=== PATIENT | female | born 1950 | race Caucasian/White ===

== ENCOUNTER 2019-11-14 18:50 | Inpatient (IN) | payer MEDICARE, OTHER ==
[~2019-11-14] VITALS: Ht 162.6 cm; Wt 48.2 kg
--- NOTE | 2019-11-14 19:06 | NUR ---
just vomited 300 mls of brown tinged liquid with food particles.
[2019-11-14 19:38] LABS: BASOPHILS # (AUTO) 0.1 X10'3 (0-0.2); BASOPHILS % (AUTO) 0.5 % (0-1); EOSINOPHILS # (AUTO) 0.3 X10'3 (0-0.9); EOSINOPHILS % (AUTO) 2.1 % (0-6); HEMATOCRIT 41.7 % (35.0-45.0); HEMOGLOBIN 13.7 g/dl (12.0-16.0); LYMPHOCYTES # (AUTO) 1.7 X10'3 (1.1-4.8); LYMPHOCYTES % (AUTO) 10.7 % (21-51); MEAN CORPUSCULAR HEMOGLOBIN 26.9 PG (27.0-31.0); MEAN CORPUSCULAR HGB CONC 32.9 g/dL (33.0-36.5); MEAN CORPUSCULAR VOLUME 81.8 FL (78-98); MONOCYTES # (AUTO) 1.1 X10'3 (0-0.9); MONOCYTES % (AUTO) 7.1 % (2-12); NEUTROPHILS # (AUTO) 12.3 X10'3 (1.8-7.7); NEUTROPHILS % (AUTO) 79.6 % (42-75); PLATELET COUNT 454 X10'3 (140-440); RED CELL DISTRIBUTION WIDTH 16.4 % (11.5-14.5); WHITE BLOOD COUNT 15.4 X10'3 (4.5-11.0)
[2019-11-14] MEDS ORDERED: normal saline 1000ml 1,000 ML IV ONE ×2 (19:40→20:00)
[2019-11-14] MEDS ORDERED: ondansetron/PF 4mg/2ml inj IV ONE ×2 (19:40→21:25)
[2019-11-14 19:46] LABS: ALANINE AMINOTRANSFERASE 25 U/L (12-78); ALBUMIN 3.1 G/DL (3.4-5.0); ALBUMIN/GLOBULIN RATIO 0.4 (1.1-1.5); ALKALINE PHOSPHATASE 166 IU/L (46-116); ANION GAP 12 (8-16); BILIRUBIN,TOTAL 0.6 MG/DL (0.1-1.0); BLOOD UREA NITROGEN 23 MG/DL (7-18); BUN/CREATININE RATIO 25.8 (6.6-38.0); CALCIUM 9.8 MG/DL (8.5-10.1); CHLORIDE 96 MMOL/L (99-107); CREATININE 0.89 MG/DL (0.40-0.90); LIPASE 237 U/L (73-393); SODIUM 132 MMOL/L (135-145); TOTAL CARBON DIOXIDE 23.7 MMOL/L (24-32); TOTAL PROTEIN 10.5 G/DL (6.4-8.2); eGFR 63 ML/MIN
--- NOTE | 2019-11-14 19:57 | NUR ---
pt stated she felt like she was going to pass out. Side rails elevated, head of bed flat. VSS. PT unresponsive for approx 5-10 seconds, then became more alert. After event, pt A/0 X 4. notified of sycopal event. No new orders.
[2019-11-14 20:02] LABS: GLUCOSE 156 MG/DL (70-104); POTASSIUM 4.6 MMOL/L (3.5-5.1)
[2019-11-14 20:08] LABS: ASPARTATE AMINO TRANSFERASE 49 U/L (10-37)
[2019-11-14] MEDS ORDERED: proCHLORperazine 10 MG/2 ml inj IV ONE (21:00)
[2019-11-14] MEDS ORDERED: diphenhydrAMINE 50 mg/ml inj IV ONE (21:00)
[2019-11-14] MEDS ORDERED: MORP-92 PO (21:20)
[2019-11-14] MEDS ORDERED: GLIP10TA11 PO (21:21)
[2019-11-14] MEDS ORDERED: HYDR-3972 PO (21:22)
[2019-11-14] MEDS ORDERED: LORA-269 PO (21:24)
[2019-11-14] MEDS ORDERED: morphine 4 MG/ML inj SYRINge IV ONE (21:25)
[2019-11-14] MEDS ORDERED: MELO-102 PO (21:25)
--- NOTE | 2019-11-14 22:35 | NUR ---
pt comfortable after administration of compazine and would like to delay insertion of NG tube at this time. Pt educated on use of NG tube and will notify staff if nausea/vomiting/abd pain returns.
[2019-11-15] MEDS ORDERED: potassium CL 10mEq/100ml bag 100 ML IV PRN ×2 (00:20)
[2019-11-15] MEDS ORDERED: magnesium 2GM in 50ml NS 50 ML IV PRN (00:20)
[2019-11-15] MEDS ORDERED: morphine 2 MG/ML inj. syringe IV PRN (00:20)
[2019-11-15] MEDS ORDERED: potassium Cl 20 mEq SR tablet PO PRN ×2 (00:20)
[2019-11-15] MEDS ORDERED: HYDROcodone/acetaminophen 5mg/325mg tablet PO PRN (00:20)
[2019-11-15] MEDS ORDERED: ondansetron/PF 4mg/2ml inj IV PRN (00:20)
[2019-11-15] MEDS ORDERED: magnesium hydroxide 30ml (MOM) UD suspension PO PRN (00:20)
[2019-11-15] MEDS ORDERED: magnesium Cl slow-release 64mg tablet PO PRN (00:20)
[2019-11-15] MEDS ORDERED: mag hydrox/Alum hydrox/simeth 30ml oral suspension PO PRN (00:20)
[2019-11-15] MEDS ORDERED: acetaminophen 325mg tablet PO PRN ×2 (00:20)
[2019-11-15] MEDS ORDERED: magnesium 4gm in 100ml NS 100 ML IV PRN (00:20)
[2019-11-15] MEDS ORDERED: ketorolac trometh. 30mg/ml inj. IV PRN (00:40)
--- NOTE | 2019-11-15 02:05 | NUR ---
RECIE Addendum: 11/15/19 at 0504 by Davida Linder RN OMIT
--- NOTE | 2019-11-15 02:05 | NUR ---
RECEIVED PT FROM ER VIA [facility] FOLLOWING VERBAL REPORT FROM CYN. ASSUMED CARE OF PT WITH RN STUDENT JUDE Herrmann
[2019-11-15] MEDS: normal saline 1000ml 1,000 ML IV SCH ×3 (02:14→20:53)
[2019-11-15 02:15] VITALS: BP 163/77
[2019-11-15] MEDS: morphine 2 MG/ML inj. syringe IV PRN ×2 (02:28→11:48)
[2019-11-15 06:04] LABS: COLOR,URINE YELLOW (Yellow); GLUCOSE, URINE NEGATIVE (Neg); KETONES,URINE 40 mg/dl (Neg); LEUKOCYTE ESTERASE ,URINE NEGATIVE (Neg); NITRITES, URINE NEGATIVE (Neg); OCCULT BLOOD,URINE NEGATIVE (Neg); PROTEIN,URINE 30 mg/dl (Neg)
[2019-11-15 06:11] LABS: UA COLLECTION TYPE CLN CATCH MIDSTREAM
[2019-11-15 06:12] LABS: BACTERIA,URINE FEW /HPF (Neg); CLARITY,URINE SLIGHTLY CLOUDY (Clear); RBC,URINE 0-2 /HPF (0-2); SQUAMOUS EPITHELIAL CELL,UR MODERATE /LPF (FEW); WBC,URINE 0-4 /HPF (0-4)
--- NOTE | 2019-11-15 06:30 | NUR ---
Patient in room [facility]. I have received report from Davida SHINE and had the opportunity to ask questions and assume patient care.
--- NOTE | 2019-11-15 06:33 | NUR ---
Problems reprioritized. Patient report given, questions answered & plan of care reviewed with ABDULLAHI.
[2019-11-15 07:03] VITALS: BP 152/66
[2019-11-15] MEDS: K and/or MAG REPLACEMENT MC SCH ×2 (07:47→20:00)
[2019-11-15] MEDS: pantoprazole 40 MG vial IV SCH ×2 (07:49→20:52)
[2019-11-15] MEDS: enoxaparin 40mg/0.4ml syringe SQ SCH (08:00)
[2019-11-15] MEDS ORDERED: dextrose 50%-water 50ml dispensing syringe IV PRN ×2 (10:25)
[2019-11-15] MEDS ORDERED: MESSAGE TO PHARMACY PO ONE (10:25)
[2019-11-15] MEDS ORDERED: insulin Lispro (HumaLOG) vial - multi-dose SQ SCH (10:25)
[2019-11-15] MEDS ORDERED: dextrose ORAL solution 15 GM/59 ML bottle PO PRN ×2 (10:25)
[2019-11-15] MEDS ORDERED: glucagon, human recombinant 1mg kit SUBCUT PRN (10:25)
[2019-11-15 11:00] VITALS: BP 160/67
[2019-11-15 11:14] LABS: HEMOGLOBIN A1C 6.4 % (4.5-6.2)
--- NOTE | 2019-11-15 13:07 | NUR ---
DM/Malnutrition consults: Pt admit w/ SBO hx recent DX metastatic lung CA and placed on narotics for pain per MD note. Pt hx constipation since 11/07 and one episode vomiting per EMR. Hx T2DM new A1C <7. Pt NPO w/ R NG in place to suction 500ml and 900ml output so far. BRITTA d/w RN regarding opioid antagonist per MD approval given constipating effects of opioids and receiving morphine this admit. At this time pt has normal strength, no edema, is well-developed and well-nourished in appearance per MD note, and does not meet minimum malnutrition criteria. Will continue to monitor. Addendum: 11/15/19 at [address] Amended: Links added. Addendum: 11/15/19 at [address] DM/Malnutrition consults: Pt admit w/ SBO hx recent DX metastatic lung CA and placed on narotics for pain per MD note. Pt hx constipation since 11/07 and one episode vomiting per EMR. Hx T2DM new A1C <7. Pt NPO w/ R NG in place to suction 500ml and 900ml output so far. RD d/w RN regarding opioid antagonist per MD approval given constipating effects of opioids and receiving morphine this admit. At this time pt has normal strength, no edema, is well-developed and well-nourished in appearance per MD note, and does not meet minimum malnutrition criteria. Will continue to monitor. Rec: 1. advance diet per MD to carb controlled/low-residue 2. monitor for ONS needs once diet advances 3. opioid antagonist per MD given opioids hx and constipation 4. wt per rx
--- NOTE | 2019-11-15 18:30 | NUR ---
Patient in room [facility]. I have received report from ABDULLAHI and had the opportunity to ask questions and assume patient care. ASSUMED CARE OF PT WITH RN STUDENT JUDE Herrmann
--- NOTE | 2019-11-15 18:36 | NUR ---
Problems reprioritized. Patient report given, questions answered & plan of care reviewed with Grace SHINE.
[2019-11-15 20:00] VITALS: BP 170/62
[2019-11-15] MEDS ORDERED: temazepam 15mg capsule PO PRN (20:20)
[2019-11-15] MEDS ORDERED: insulin glargine (Lantus) pen - multi-dose SQ SCH (21:00)
[2019-11-16] VITALS: BP 145/58
[2019-11-16] MEDS: normal saline 1000ml 1,000 ML IV SCH (05:34)
--- NOTE | 2019-11-16 05:56 | NUR ---
Student documentation: I have reviewed and agree with all interventions, assessments performed and documented by JUDE Herrmann
--- NOTE | 2019-11-16 05:56 | NUR ---
Student Medication Administration: For this medication-pass time frame, all medication were reviewed, dispensed, administered and documented per hospital policy by JUDE Herrmann
[2019-11-16 06:22] LABS: BASOPHILS % (AUTO) 0.2 % (0-1); EOSINOPHILS # (AUTO) 0.1 X10'3 (0-0.9); EOSINOPHILS % (AUTO) 1.1 % (0-6); HEMOGLOBIN 11.3 g/dl (12.0-16.0); LYMPHOCYTES # (AUTO) 0.7 X10'3 (1.1-4.8); LYMPHOCYTES % (AUTO) 9.7 % (21-51); MEAN CORPUSCULAR HEMOGLOBIN 26.6 PG (27.0-31.0); MEAN CORPUSCULAR HGB CONC 33.1 g/dL (33.0-36.5); MEAN CORPUSCULAR VOLUME 80.4 FL (78-98); MONOCYTES # (AUTO) 0.8 X10'3 (0-0.9); MONOCYTES % (AUTO) 10.5 % (2-12); NEUTROPHILS % (AUTO) 78.5 % (42-75); PLATELET COUNT 251 X10'3 (140-440); RED BLOOD COUNT 4.23 X10'6 (4.20-5.60); WHITE BLOOD COUNT 7.6 X10'3 (4.5-11.0)
--- NOTE | 2019-11-16 06:27 | NUR ---
Problems reprioritized. Patient report given, questions answered & plan of care reviewed with ABDULLAHI.
[2019-11-16 06:43] LABS: ALANINE AMINOTRANSFERASE 15 U/L (12-78); ALBUMIN 2.3 G/DL (3.4-5.0); ALBUMIN/GLOBULIN RATIO 0.4 (1.1-1.5); ALKALINE PHOSPHATASE 113 IU/L (46-116); ANION GAP 7 (8-16); ASPARTATE AMINO TRANSFERASE 20 U/L (10-37); BILIRUBIN,TOTAL 0.4 MG/DL (0.1-1.0); BLOOD UREA NITROGEN 12 MG/DL (7-18); BUN/CREATININE RATIO 26.7 (6.6-38.0); CALCIUM 7.9 MG/DL (8.5-10.1); CHLORIDE 106 MMOL/L (99-107); CREATININE 0.45 MG/DL (0.40-0.90); GLUCOSE 131 MG/DL (70-104); MAGNESIUM 1.5 MG/DL (1.5-2.4); SODIUM 141 MMOL/L (135-145); TOTAL CARBON DIOXIDE 27.7 MMOL/L (24-32); TOTAL PROTEIN 7.7 G/DL (6.4-8.2); eGFR > 90 ML/MIN
[2019-11-16 06:52] LABS: POTASSIUM 2.4 MMOL/L (3.5-5.1)
[2019-11-16 07:32] VITALS: BP 153/63
[2019-11-16] MEDS ORDERED: pantoprazole 40mg Tablet.DR PO SCH (08:00)
[2019-11-16] MEDS: K and/or MAG REPLACEMENT MC SCH (08:00)
[2019-11-16] MEDS: enoxaparin 40mg/0.4ml syringe SQ SCH (08:00)
[2019-11-16 10:47] LABS: OCCULT BLOOD STOOL NEGATIVE (Neg)
[2019-11-16 11:00] VITALS: BP 149/63
[2019-11-16] MEDS ORDERED: potassium Cl 20 mEq SR tablet PO STA (11:39)
[2019-11-16] MEDS ORDERED: PANT40TA4 PO (12:08)
[2019-11-16] MEDS ORDERED: POTA20TA19 PO (13:18)
--- NOTE | 2019-11-16 14:20 | NUR ---
Patient discharged at this time, education was done with family in room. New medications were educated on. patient medications e scribed to [facility] [address]. Patient IV was taken out at time of discharge. Minimal bleeding and canula was intact at this time. Patient left with all belongings and discharge papers, auxiliary transported patient down to lobby via wheel chair. Patient transported home via private vehicle.
== END 2019-11-16 14:19 | disposition home or self-care (01) | DRG 389 ==
LOC: ER 18:51 → ED HOLD 11-15 00:17 → SUR 3N 11-15 01:45
PROVIDERS: ADMIT Hospitalist; ATTEND Family Medicine
PROC: 0D9670Z Drainage of Stomach with Drainage Device, Via Natural or Artificial Opening (ICD-10-PCS; principal; 2019-11-15)
DX: K56.609 Unspecified intestinal obstruction, unspecified as to partial versus complete obstruction (principal); C34.90 Malignant neoplasm of unspecified part of unspecified bronchus or lung; C78.7 Secondary malignant neoplasm of liver and intrahepatic bile duct; Z87.891 Personal history of nicotine dependence; Z79.899 Other long term (current) drug therapy
CPT/HCPCS: 36415; 74176; 80053; 81001; 82272; 82948; 83036; 83605; 83690; 83735; 85025; 87081; 93005; 96374; 96375; 99285; C9113; G0378; J0780; J1200; J1815; J1885; J2270; J2405; J7030